=== PATIENT | male | born 1950 | race Caucasian/White ===

== ENCOUNTER 2018-03-14 14:57 | Emergency (ER) | payer MEDICARE ==
[2018-03-14 15:49] LABS: BASOPHILS 0.5 % (0-2); EOSINOPHILS 2.9 % (0-7); HEMATOCRIT 47.1 % (42.0-54.0); HEMOGLOBIN 15.7 g/dL (13.5-17.5); IMMATURE GRANULOCYTES 0.2 % (0-5); LYMPHOCYTES 16.7 % (15-50); MCH 29.1 pg (26.0-34.0); MCHC 33.3 g/dL (31.0-37.0); MCV 87.4 fL (80.0-100.0); MONOCYTES 7.8 % (2-11); NEUTROPHILS 71.9 % (40-80); RBC 5.39 10x6/uL (4.20-6.10); RDW 12.9 % (11.5-14.5); WBC 9.2 10x3/uL (4.8-10.8)
[2018-03-14 15:50] LABS: PLATELET COUNT 186 10x3/uL (130-400)
[2018-03-14 16:05] LABS: ALBUMIN 3.6 g/dL (3.4-5.0); ALKALINE PHOSPHATASE 86 U/L (46-116); ALT (SGPT) 44 U/L (10-68); BILIRUBIN - TOTAL 0.48 mg/dL (0.2-1.3); CALC OSMOLALITY 283 mosm/kg (275-300); CARBON DIOXIDE 21.7 mmol/L (21.0-32.0); CHLORIDE - SERUM 104 mmol/L (98-107); CREATININE - SERUM 1.5 mg/dL (0.6-1.3); GLUCOSE 196 mg/dL (74-106); POTASSIUM - SERUM 4.1 mmol/L (3.5-5.1); PROTEIN - SERUM 7.8 g/dL (6.4-8.2); SODIUM 137 mmol/L (136-145); UREA NITROGEN 26 mg/dL (7-18); eGFR NON AFRICAN AMERICAN 50 mL/min (90-120)
[2018-03-14 16:13] LABS: CREATINE KINASE 118 UL (21-232); PRO BNP 19 pg/mL (0-125)
[2018-03-14 16:16] LABS: TROPONIN-I < 0.017 ng/mL (0.000-0.060)
== END 2018-03-14 17:38 | disposition home or self-care (01) ==
LOC: D.ER 14:57
PROVIDERS: Nurse Practitioner Family
DX: F41.9 Anxiety disorder, unspecified (principal); F11.23 Opioid dependence with withdrawal; E11.9 Type 2 diabetes mellitus without complications; Z79.4 Long term (current) use of insulin; J44.9 Chronic obstructive pulmonary disease, unspecified; K21.9 Gastro-esophageal reflux disease without esophagitis

== ENCOUNTER 2018-10-07 14:25 | Inpatient (IN) | payer OTHER, MEDICARE ==
[~2018-10-07] VITALS: Ht 167.6 cm; Wt 96.8 kg
--- NOTE | ~2018-10-07 | MORECARE ---
CASE MANAGEMENT DISCHARGE SUMMARY PATIENT: ROLANDO JOHNSON UNIT: [id number] ADM DATE: 10/08/18 AGE: 68 : 51 SEX: M ROOM/BED: D.2202 AUTHOR: LEONORDOC PHYSICIAN: REFERRING PHYSICIAN: NADEEN MOSS MD DATE OF SERVICE: 10/10/18 Discharge Plan Patient Name: ROLANDO JOHNSON Facility: [facility]:[place] : 1950 Planned Disposition: Home Anticipated Discharge Date: Discharge Date: Expected LOS: Initial Reviewer: [email or web address] Initial Review Date: 10/07/2018 Generated: 10/10/18 11:13 am Comments DCP- Discharge Planning Updated by [email or web address]: Gayatri Salas on 10/10/18 9:[address] Patient Name: ROLANDO JOHNSON Admission Status: ER Accout number: [id number] Admission Date: 10-08-2018 : 1950 Admission Diagnosis: Attending: NADEEN MOSS Current LOS: 2 Anticipated DC Date: Planned Disposition: Home Primary Insurance: [facility] Discharge Planning Comments: CM met with patient to assess discharge planning needs. Patient stated that he lives independently at home, but will be staying with a friend (marina) for a bit while he gets his strength. His friend Van will be the one to drive him to Marina's house. He denies any need for home health. He has a O2 concentrator at home, nebulizer and cane at home. He is concerned about need portable O2. I have ordered a walk test to see if he needs portable O2. CM will continue to follow and assist with DC planning as needed Title Insurance Sales Representative: Gayatri Salas DCPIA - Discharge Planning Initial Assessment Updated by [email or web address]: Gayatri Salas on 10/10/18 10:05 am * Is the patient Alert and Oriented? Yes * How many steps to enter\exit or inside your home? * [facility] * Preadmission Environment Home Alone * ADLs Independent * Equipment Cane Nebulizer Oxygen * Other Equipment O2 CONCENTRATOR * List name and contact numbers for known caregivers / representatives who currently or will assist patient after discharge: VAN (FRIEND) * Verbal permission to speak to the caregivers and representatives has been obtained from the patient. N/A * Community resources currently utilized None * Additional services required to return to the preadmission environment? No * Can the patient safely return to the preadmission environment? Yes * Has this patient been hospitalized within the prior 30 days at any hospital? No Last DP export: 10/10/18 9:06 a Patient Name: ROLANDO JOHNSON Page [id number] at 1013 All edits/amendments must be made on the electronic document DICTATION DATE: 10/10/18 1012 TITLE ABSTRACTOR: BANDAR 10/10/18 1012 RPT#: [id number] NC DATE: STATUS: ADM IN [facility] [address] [place] [address] END OF REPORT
--- NOTE | ~2018-10-07 | MORECARE ---
CASE MANAGEMENT DISCHARGE SUMMARY PATIENT: ROLANDO JOHNSON R UNIT: [id number] ADM DATE: 10/08/18 AGE: 68 : 51 SEX: M ROOM/BED: D.2202 AUTHOR: SEB GALVEZ PHYSICIAN: REFERRING PHYSICIAN: NADEEN MOSS MD DATE OF SERVICE: 10/10/18 Discharge Plan Patient Name: ROLANDO JOHNSON [facility] [facility] 1950 Planned Disposition: Home Anticipated Discharge Date: Discharge Date: Expected LOS: Initial Reviewer: [email or web address] Initial Review Date: 10/07/2018 Generated: 10/10/18 11:06 am DCPIA - Discharge Planning Initial Assessment Updated by [email or web address]: Gayatri Salas on 10/10/18 10:05 am * Is the patient Alert and Oriented? Yes * How many steps to enter\exit or inside your home? * [facility] Preadmission Environment Home Alone * ADLs Independent * Equipment Cane Nebulizer Oxygen * Other Equipment O2 CONCENTRATOR * List name and contact numbers for known caregivers / representatives who currently or will assist patient after discharge: MARCELINO (FRIEND) * Verbal permission to speak to the caregivers and representatives has been obtained from the patient. N/A * Community resources currently utilized None * Additional services required to return to the preadmission environment? No * Can the patient safely return to the preadmission environment? Yes * Has this patient been hospitalized within the prior 30 days at any hospital? No Patient Name: ROLANDO JOHNSON Page [id number] at 1006 All edits/amendments must be made on the electronic document DICTATION DATE: 10/10/18 1005 INTERVENTIONAL RADIOLOGY TECHNOLOGIST: BANDAR 10/10/18 1005 RPT#: [id number] DC DATE: STATUS: ADM IN [facility] [address] [place] [address] END OF REPORT
--- NOTE | ~2018-10-07 | MORECARE ---
CASE MANAGEMENT DISCHARGE SUMMARY PATIENT: ROLANDO JOHNSON UNIT: [id number] ADM DATE: 10/08/18 AGE: 68 : 52 SEX: M ROOM/BED: D.2202 AUTHOR: LEONORDOC PHYSICIAN: REFERRING PHYSICIAN: NADEEN MOSS MD DATE OF SERVICE: 10/10/18 Discharge Plan Patient Name: ROLANDO JOHNSON Facility: [facility]:[place] : 1950 Planned Disposition: Home Anticipated Discharge Date: Discharge Date: Expected LOS: Initial Reviewer: [email or web address] Initial Review Date: 10/07/2018 Generated: 10/10/18 12:40 pm Comments DCP- Discharge Planning Updated by [email or web address]: Gayatri Salas on 10/10/18 10:[address] PATIENT PASSED THE WALK TEST FOR HOME O2, WILL NOT NEED PORTABLE DCP- Discharge Planning Updated by [email or web address]: Gayatri Salas on 10/10/18 9:[address] Patient Name: ROLANDO JOHNSON Admission Status: ER Accout number: [id number] Admission Date: 10-08-2018 : 1950 Admission Diagnosis: Attending: NADEEN MOSS Current LOS: 2 Anticipated DC Date: Planned Disposition: Home Primary Insurance: [facility] Discharge Planning Comments: CM met with patient to assess discharge planning needs. Patient stated that he lives independently at home, but will be staying with a friend (marina) for a bit while he gets his strength. His friend Van will be the one to drive him to Marina's house. He denies any need for home health. He has a O2 concentrator at home, nebulizer and cane at home. He is concerned about need portable O2. I have ordered a walk test to see if he needs portable O2. CM will continue to follow and assist with DC planning as needed Cavalry Scout: Gayatri Salas DCPIA - Discharge Planning Initial Assessment Updated by [email or web address]: Gayatri Salas on 10/10/18 10:05 am * Is the patient Alert and Oriented? Yes * How many steps to enter\exit or inside your home? * PCP [facility] [facility] Preadmission Environment Home Alone * ADLs Independent * Equipment Cane Nebulizer Oxygen * Other Equipment O2 CONCENTRATOR * List name and contact numbers for known caregivers / representatives who currently or will assist patient after discharge: VAN (FRIEND) * Verbal permission to speak to the caregivers and representatives has been obtained from the patient. N/A * Community resources currently utilized None * Additional services required to return to the preadmission environment? No * Can the patient safely return to the preadmission environment? Yes * Has this patient been hospitalized within the prior 30 days at any hospital? No Last DP export: 10/10/18 9:13 a Patient Name: ROLANDO JOHNSON Page [id number] at 1140 All edits/amendments must be made on the electronic document DICTATION DATE: 10/10/18 114 OYSTER FISHERMAN: BANDAR 10/10/18 1140 RPT#: [id number] DC DATE: STATUS: ADM IN [facility] [address] [place] [address] END OF REPORT
--- NOTE | ~2018-10-07 | MORECARE ---
CASE MANAGEMENT DISCHARGE SUMMARY PATIENT: ROLANDO JOHNSON UNIT: [id number] ADM DATE: 10/08/18 AGE: 68 : 52 SEX: M ROOM/BED: D.2202 AUTHOR: LEONORDOC PHYSICIAN: REFERRING PHYSICIAN: NADEEN MOSS MD DATE OF SERVICE: 10/13/18 Discharge Plan Patient Name: ROLANDO JOHNSON Facility: [facility]:[place] : 1950 Planned Disposition: Home Anticipated Discharge Date: Discharge Date: 10/10/2018 Expected LOS: 0 Initial Reviewer: [email or web address] Initial Review Date: 10/07/2018 Generated: 10/13/18 12:29 pm Comments DCP- Discharge Planning Updated by [email or web address]: Gayatri Salas on 10/10/18 10:[address] PATIENT PASSED THE WALK TEST FOR HOME O2, WILL NOT NEED PORTABLE DCP- Discharge Planning Updated by [email or web address]: Gayatri Salas on 10/10/18 9:[address] Patient Name: ROLANDO JOHNSON Admission Status: ER Accout number: [id number] Admission Date: 10-08-2018 : 1950 Admission Diagnosis: Attending: NADEEN MOSS Current LOS: 2 Anticipated DC Date: Planned Disposition: Home Primary Insurance: [facility] MED[facility] Discharge Planning Comments: CM met with patient to assess discharge planning needs. Patient stated that he lives independently at home, but will be staying with a friend (marina) for a bit while he gets his strength. His friend Van will be the one to drive him to Marina's house. He denies any need for home health. He has a O2 concentrator at home, nebulizer and cane at home. He is concerned about need portable O2. I have ordered a walk test to see if he needs portable O2. CM will continue to follow and assist with DC planning as needed Mailing Specialist: Gayatri Salas DCPIA - Discharge Planning Initial Assessment Updated by [email or web address]: Gayatri Salas on 10/10/18 10:05 am * Is the patient Alert and Oriented? Yes * How many steps to enter\exit or inside your home? * [facility]CP [facility] [facility] * Preadmission Environment Home Alone * ADLs Independent * Equipment Cane Nebulizer Oxygen * Other Equipment O2 CONCENTRATOR * List name and contact numbers for known caregivers / representatives who currently or will assist patient after discharge: VAN (FRIEND) * Verbal permission to speak to the caregivers and representatives has been obtained from the patient. N/A * Community resources currently utilized None * Additional services required to return to the preadmission environment? No * Can the patient safely return to the preadmission environment? Yes * Has this patient been hospitalized within the prior 30 days at any hospital? No Last DP export: 10/10/18 10:40 a Patient Name: ROLANDO JOHNSON Page [phone] at 1130 All edits/amendments must be made on the electronic document DICTATION DATE: 10/13/181128 DROP HAMMER OPERATOR HELPER: BANDAR 10/13/181128 RPT#: [id number] DC DATE:10/10/18 STATUS: DIS IN [facility] [address] [place] [address] END OF REPORT
[2018-10-07 16:22] LABS: BASOPHILS 0.2 % (0-2); EOSINOPHILS 0.3 % (0-7); HEMATOCRIT 43.7 % (42.0-54.0); HEMOGLOBIN 14.3 g/dL (13.5-17.5); IMMATURE GRANULOCYTES 0.2 % (0-5); LYMPHOCYTES 5.1 % (15-50); MCH 29.4 pg (26.0-34.0); MCHC 32.7 g/dL (31.0-37.0); MCV 89.7 fL (80.0-100.0); MONOCYTES 12.4 % (2-11); NEUTROPHILS 81.8 % (40-80); PLATELET COUNT 181 10x3/uL (130-400); RBC 4.87 10x6/uL (4.20-6.10); RDW 13.9 % (11.5-14.5); WBC 16.2 10x3/uL (4.8-10.8)
[2018-10-07 16:53] LABS: ALBUMIN 3.1 g/dL (3.4-5.0); ALKALINE PHOSPHATASE 103 U/L (46-116); ALT (SGPT) 20 U/L (10-68); BILIRUBIN - TOTAL 0.44 mg/dL (0.2-1.3); CALC OSMOLALITY 274 mosm/kg (275-300); CALCIUM 9.8 mg/dL (8.5-10.1); CARBON DIOXIDE 25.4 mmol/L (21.0-32.0); CHLORIDE - SERUM 100 mmol/L (98-107); CREATININE - SERUM 1.6 mg/dL (0.6-1.3); GLUCOSE 173 mg/dL (74-106); PRO BNP 143 pg/mL (0-125); PROTEIN - SERUM 8.5 g/dL (6.4-8.2); SODIUM 134 mmol/L (136-145); TROPONIN-I < 0.017 ng/mL (0.000-0.060); UREA NITROGEN 22 mg/dL (7-18); eGFR NON AFRICAN AMERICAN 46 mL/min (90-120)
[2018-10-07] MEDS ORDERED: LISINOPRIL10 MG PO (20:25)
[2018-10-07] MEDS ORDERED: NOVOLOG100 UNIT/1 (20:29)
[2018-10-07 20:30] VITALS: BP 143/81; Ht 167.6 cm; Wt 96.8 kg
[2018-10-07 21:18] VITALS: BP 143/81
[2018-10-08 06:19] VITALS: BP 144/73
[2018-10-08 08:34] VITALS: BP 135/77
[2018-10-08 08:49] LABS: BASOPHILS 0.2 % (0-2); EOSINOPHILS 0.9 % (0-7); HEMATOCRIT 41.5 % (42.0-54.0); HEMOGLOBIN 13.4 g/dL (13.5-17.5); IMMATURE GRANULOCYTES 0.2 % (0-5); LYMPHOCYTES 7.2 % (15-50); MCHC 32.3 g/dL (31.0-37.0); MCV 89.8 fL (80.0-100.0); MEAN PLATELET VOLUME 10.4 fL (7.4-10.4); MONOCYTES 12.2 % (2-11); NEUTROPHILS 79.3 % (40-80); PLATELET COUNT 196 10x3/uL (130-400); RBC 4.62 10x6/uL (4.20-6.10); RDW 13.9 % (11.5-14.5); WBC 14.1 10x3/uL (4.8-10.8)
[2018-10-08 08:57] LABS: ANION GAP 14.7 mmol/L (8-16); CALCIUM 9.6 mg/dL (8.5-10.1); CARBON DIOXIDE 26.8 mmol/L (21.0-32.0); CREATININE - SERUM 1.5 mg/dL (0.6-1.3); POTASSIUM - SERUM 4.5 mmol/L (3.5-5.1)
[2018-10-08 12:03] VITALS: BP 135/66
[2018-10-08 16:21] VITALS: BP 135/73
[2018-10-08] MEDS ORDERED: ACETAMINOPHEN500 M1 PO (17:31)
[2018-10-08] MEDS ORDERED: MULTI-DAY VITAM1 TAB PO (17:32)
[2018-10-08] MEDS ORDERED: TOPROL XL100 MG PO (17:32)
[2018-10-08] MEDS ORDERED: LEVEMIR IN100 UNITS/ SC (17:33)
[2018-10-08] MEDS ORDERED: LISINOPRIL10 MG PO (17:33)
[2018-10-08] MEDS ORDERED: LIPITOR40 MG PO (17:34)
[2018-10-08] MEDS ORDERED: FUROSEMIDE20 MG PO (17:35)
[2018-10-08] MEDS ORDERED: OMEPRAZOLE20 M1 PO (17:35)
[2018-10-08] MEDS ORDERED: MELATONIN 3 MG1 TAB PO (17:36)
[2018-10-08] MEDS ORDERED: NUCYNTA100 MG PO (17:36)
[2018-10-08] MEDS ORDERED: ZYLOPRIM300 MG PO (17:37)
[2018-10-08] MEDS ORDERED: ROBAXIN500 MG PO (17:37)
[2018-10-08] MEDS ORDERED: ZYRTEC10 MG PO (17:38)
[2018-10-08] MEDS ORDERED: SYMBICORT 16010.2 GM INH (17:39)
[2018-10-08] MEDS ORDERED: VENTOLIN HFA18 GM INH (17:39)
[2018-10-08 19:03] LABS: APPEARANCE CLEAR (CLEAR); BILIRUBIN NEGATIVE (NEGATIVE); COLOR YELLOW (YELLOW); GLUCOSE NEGATIVE (NEGATIVE); KETONE NEGATIVE (NEGATIVE); NITRITE NEGATIVE (NEGATIVE); PROTEIN NEGATIVE (NEGATIVE); UROBILINOGEN NORMAL (NORMAL)
[2018-10-08 20:00] VITALS: BP 151/79
[2018-10-09 03:58] LABS: BASOPHILS 0.1 % (0-2); EOSINOPHILS 0 % (0-7); HEMATOCRIT 41.1 % (42.0-54.0); HEMOGLOBIN 13.5 g/dL (13.5-17.5); IMMATURE GRANULOCYTES 0.6 % (0-5); LYMPHOCYTES 6.9 % (15-50); MCH 29.5 pg (26.0-34.0); MCHC 32.8 g/dL (31.0-37.0); MCV 89.7 fL (80.0-100.0); MEAN PLATELET VOLUME 10.3 fL (7.4-10.4); MONOCYTES 6.8 % (2-11); NEUTROPHILS 85.6 % (40-80); PLATELET COUNT 228 10x3/uL (130-400); RBC 4.58 10x6/uL (4.20-6.10); RDW 13.8 % (11.5-14.5); WBC 10.8 10x3/uL (4.8-10.8)
[2018-10-09 04:05] LABS: ANION GAP 11.4 mmol/L (8-16); CALCIUM 9.9 mg/dL (8.5-10.1); CARBON DIOXIDE 28.2 mmol/L (21.0-32.0); CREATININE - SERUM 1.5 mg/dL (0.6-1.3); POTASSIUM - SERUM 4.6 mmol/L (3.5-5.1)
[2018-10-09 10:20] VITALS: BP 164/98
[2018-10-09 12:34] VITALS: BP 139/76
[2018-10-09 16:41] VITALS: BP 124/74
[2018-10-09 20:00] VITALS: BP 148/81
[2018-10-10] VITALS: BP 121/72
[2018-10-10 04:00] VITALS: BP 158/86
[2018-10-10 06:16] LABS: BASOPHILS 0.2 % (0-2); EOSINOPHILS 0.2 % (0-7); HEMATOCRIT 41.5 % (42.0-54.0); HEMOGLOBIN 13.3 g/dL (13.5-17.5); IMMATURE GRANULOCYTES 1.1 % (0-5); LYMPHOCYTES 9.9 % (15-50); MCH 28.9 pg (26.0-34.0); MCV 90.2 fL (80.0-100.0); MEAN PLATELET VOLUME 10.5 fL (7.4-10.4); MONOCYTES 6.4 % (2-11); NEUTROPHILS 82.2 % (40-80); PLATELET COUNT 271 10x3/uL (130-400)
[2018-10-10 06:21] LABS: ANION GAP 15.4 mmol/L (8-16); CALCIUM 9.7 mg/dL (8.5-10.1); CARBON DIOXIDE 27.6 mmol/L (21.0-32.0); CREATININE - SERUM 1.5 mg/dL (0.6-1.3)
[2018-10-10 08:49] VITALS: BP 135/68
[2018-10-10] MEDS ORDERED: ZITHROMAX500 MG PO (09:16)
[2018-10-10] MEDS ORDERED: NASONEX NASAL S17 GM NS (09:17)
[2018-10-10] MEDS ORDERED: PREDNISONE10 MG PO (09:18)
[2018-10-10] MEDS ORDERED: MUCINEX600 MG PO (09:19)
== END 2018-10-10 15:04 | disposition home or self-care (01) | DRG 189 ==
LOC: D.ER 14:25 → D.EDHOLD 18:05 → OBSVTIME 18:05 → D.MS 18:05
PROVIDERS: Family Medicine; Internal Medicine Nephrology
DX: J96.21 Acute and chronic respiratory failure with hypoxia (principal); J44.0 Chronic obstructive pulmonary disease with (acute) lower respiratory infection; J44.1 Chronic obstructive pulmonary disease with (acute) exacerbation; N17.9 Acute kidney failure, unspecified; J20.9 Acute bronchitis, unspecified; I10 Essential (primary) hypertension; E11.9 Type 2 diabetes mellitus without complications